=== PATIENT | female | born 1960 | race Caucasian/White ===

== ENCOUNTER 2016-12-10 10:12 | Inpatient (IN) | payer BC, OTHER ==
[2016-12-10] VITALS (33 sets, daily range): BP systolic 81–139; BP diastolic 52–99
[~2016-12-10] VITALS: Ht 162.6 cm; Wt 86.6 kg
--- NOTE | ~2016-12-10 | D ---
[facility] [place] [address] DISCHARGE SUMMARY Name: ANASTACIO BALLARD KALEN Room #: 206-P [facility] IN M.R.#: [id number] Admission: 12/10/16 Attend Phys: Nando Montoya MD, Discharge: 12/13/16 Date of : 56 Report #: [id number] THIS REPORT FOR: //name// CC: Nando Malik MD DATE OF SERVICE: 12/13/2016 DISCHARGE SUMMARY HOSPITAL COURSE: The patient is a 56-year-old female, who was admitted after having an acute anterior wall myocardial infarction while undergoing a nuclear Lexiscan stress test at our [facility]. The Lexiscan was reversed and she was emergently brought to the catheterization lab. This was all within 30 minutes duration. I subsequently found a totally occluded proximal LAD. I was able to successfully dilated and stent that vessel with a drug-eluting stent. There was a 75% to 80% mid RCA lesion that will come back and will intervene on a later date, but this LAD had successful placement of a 2.75 x 14 Resolute stent, postdilated to 3.0 mm in size, yielding 0% residual and LYDIA grade 3 flow. Marked improvement in chest pain and EKG changes. She is up and ambulating, doing well. She is voicing no recurrent complaints. Her creatinine is 1.1 and potassium was 4.4. H and H is and 41.8. She is having a difficult time with smoking cessation, but certainly she is going to try vaping, nonnicotine. She will be discharged on aspirin, Effient 10, Lopressor 20, Toprol external 25, losartan 50, Lipitor 80, and metformin 500 b.i.d. Her hemoglobin A1c was 6.1, but her sugars have been running 130 to 200 and initially over 300 here. She is recommended for a diabetic diet. Dr. Malik, primary will follow up with this. I have initiated 500 metformin b.i.d. She has a followup with me in one month. We will consider intervention into that RCA lesion, it is a dominant vessel. She should resolve of her anterior wall . I expect this to be normal on an abbreviated echo, when she sees me in 1 month. DISCHARGE DIAGNOSES: 1. Acute anterior wall ST elevation myocardial infarction. 2. Hypertension. 3. Hypercholesterolemia. 4. Significant tobacco use. 5. Glucose intolerance and/or new onset diabetes. No lifting for 48 hours. No lying in tub, Jacuzzi or [place] for a week. No MRI or dental work for 3 months. <ELECTRONICALLY SIGNED> By: Nando Montoya MD, FACC 12/14/16 0824 1104 1322 Nando Montoya MD, FACC /nt
--- NOTE | ~2016-12-10 | EKG ---
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 : 1960 Requested By: Nando Montoya Order Number: [id number] MD: Chinmay Farmer Measurements Intervals [place] Rate: 80 P: 5 GA: 185 QRS: -41 QRSD: 102 T: QT: 428 QTc: 494 Interpretive Statements Sinus rhythm Poor R wave progression cannot rule out inferior infarct, age indeterminate Anterior infarct, age indeterminate Compared to ECG 03/30/2010 11:26:11 Lateral T wave abnormality is more pronounced Electronically Signed On 12-13-2016 13:33:30 CDT by Chinmay Farmer [email or web address] <ELECTRONICALLY SIGNED> By: Chinmay Farmer MD, FACC 12/13/16 1333 [id number] Chinmay Farmer MD, [facility] /EPI
--- NOTE | ~2016-12-10 | EKG ---
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 : 1960 Requested By: Nando Montoya Order Number: [id number] MD: Chinmay Farmer Measurements Intervals [place] Rate: 91 P: 26 PA: 174 QRS: -53 QRSD: 96 T: 11 QT: 376 QTc: 463 Interpretive Statements Sinus rhythm Inferior infarct, old Anterior infarct, age indeterminate Compared to ECG 03/30/2010 11:26:11 Myocardial infarct finding now present Electronically Signed On 12-13-2016 13:26:45 CDT by Chinmay Farmer [email or web address] <ELECTRONICALLY SIGNED> By: Chinmay Farmer MD, [facility] 12/13/16 1326 1347 1347 Chinmay Farmer MD, [facility] /EPI
--- NOTE | ~2016-12-10 | EKG ---
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 HERNANDEZ : 1960 Requested By: Nando Montoya Order Number: [id number] MD: Chinmay Farmer Measurements Intervals [place] Rate: 83 P: 13 NC: 169 QRS: -48 QRSD: 96 T: 27 QT: 410 QTc: 482 Interpretive Statements Sinus rhythm Inferior infarct, old Anterior infarct, age indeterminate Compared to ECG 03/30/2010 11:26:11 No significant change was found Electronically Signed On 12-13-2016 13:27:12 CDT by Chinmay Farmer [email or web address] <ELECTRONICALLY SIGNED> By: Chinmay Farmer MD, [facility] 12/13/16 1327 1457 1457 Chinmay Farmer MD, [facility] /EPI
--- NOTE | ~2016-12-10 | H ---
[facility] [place] [address] HISTORY AND PHYSICAL Name: ANASTACIO BALLARD KALEN Room #: 206-P [facility] IN M.R.#: [id number] Admission: 12/10/16 Attend Phys: Nando Montoya MD, Discharge: 12/13/16 Date of : 56 Report #: [id number] THIS REPORT FOR: //name// CC: Nando Stapleton DATE OF SERVICE: 12/10/2016 HISTORY OF PRESENT ILLNESS: The patient is a 56-year-old female who, patient of Dr. Malik, I saw earlier in the week in the office with some accelerating chest pressure, heaviness. She had a normal echocardiographic exam and some mild thyroid abnormalities on a carotid Doppler, subsequently with preserved LV function and as there were some typical and atypical features, so brought in for a nuclear stress test this morning. She received a Lexiscan, started having chest pain and ST elevation. This was quickly reversed at the office by my partner, Dr. Farmer. Heparin was given. The patient tolerated it well, was still having significant pain and had significant discomfort. Paramedics examined, brought emergently to the catheterization lab here at [facility] for intervention. The patient has no prior documented coronary disease. She had marked increasing fatigue and breathlessness here in the last month or so, but definitely accelerated in the last week. She had had a cardiac catheterization 10 years ago and had 20%-30% marginal and mild mid RCA disease at that time. She is being evaluated for diabetes in addition. She has been hypertensive. She was seen recently for back pain in the [facility]. She has been on lisinopril/HCT, blood pressures are continuing to be elevated. Her LDL was 124, total cholesterol 190. She has also been on omeprazole 40. PAST MEDICAL HISTORY: Positive for the hypertension; hypercholesterolemia; reflux; appendectomy; hysterectomy; tonsillectomy for questionable tonsillar cyst; now with abnormal thyroid nodules, we will evaluate later; and COPD with continued tobacco use. SOCIAL HISTORY: She is , pack plus a day smoker. No alcohol. FAMILY HISTORY: Strongly positive for father had premature coronary disease and a pacemaker. ALLERGIES: COMPAZINE, FLEXERIL, MORPHINE AND ADHESIVE TAPE. REVIEW OF SYSTEMS: Negative except for stated above, just markedly progressive fatigue. PHYSICAL EXAMINATION: VITAL SIGNS: Blood pressure was 118/70, pulse was 90. HEENT: Eyes reveal xanthelasmas. Pharynx is clear. [facility] [address] [place] [address] HISTORY AND PHYSICAL Name: ANASTACIO BALLARD KALEN Room #: [facility] IN [facility].#: [id number] Admission: 12/10/16 Attend Phys: Nando Montoya MD, Discharge: 12/13/16 Date of : 56 Report #: [id number] NECK: Shows preserved upstrokes without JVD. LUNGS: Prolonged expiratory phase, but clear. CARDIOVASCULAR: Regular rate and rhythm; S1, S2. ABDOMEN: Soft, no HSM or abdominal bruit. EXTREMITIES: Trace nonpitting edema. NEUROLOGIC: Nonfocal. SKIN: Warm and dry without xanthoma or ulcer. MUSCULOSKELETAL: Mild arthritic changes. ASSESSMENT: 1. Acute anterior wall myocardial infarction, precipitated at Lexiscan nuclear stress test. 2. Hypertension. 3. Hypercholesterolemia. 4. Chronic obstructive pulmonary disease, continued tobacco use. RECOMMENDATIONS AND PLAN: We emergently proceed to the catheterization lab to delineate the anatomy. Risks, benefits, alternatives discussed here and we are proceeding. Her is en route. The anterior injury is noted on the EKG. We will obtain stat labs. <ELECTRONICALLY SIGNED> By: Nando Montoya MD, FACC 12/14/16 0824 1051 1134 Nando Montoya MD, FACC /nt
[~2016-12-10 10:12] MED LIST: CELEXA 10 MG TA10 M1 PO; CIPROFLOXACIN500 M1 PO; FLAGYL500 MG PO; HYDROCODON-ACE1 EACH OR; NEXIUM10 MG PO; PERCOCET 7.5-51 EACH PO; PROPANOLOL OR; ROBAXIN 750 MG750 M1 PO; TOPAMAX25 M1 PO
[2016-12-10 12:43] LABS: CALCIUM 9.3 mg/dL (8.5-10.1); CREATININE 1.1 mg/dL (0.6-1.0); POTASSIUM 3.9 mmol/L (3.5-5.1)
[2016-12-10 12:54] LABS: TROPONIN-I 10.1 ng/mL (<0.04-0.07)
[2016-12-11] VITALS (15 sets, daily range): BP systolic 92–141; BP diastolic 64–84
[2016-12-11 05:01] LABS: HEMATOCRIT 41.8 % (37.0-47.0); HEMOGLOBIN 13.8 gm/dL (12.0-15.0); MCH 28.6 pg (26.0-34.0); MCHC 32.9 g/dL (28.0-37.0); MCV 87.2 fL (80.0-100.0); RBC 4.8 mil/uL (4.20-5.00); RDW 13.7 % (10.5-14.5); WBC 22.3 thou/uL (4.0-11.0)
[2016-12-11 05:15] LABS: ANION GAP 12 mmol/L (7-16); BUN 16 mg/dL (7-18); CALCIUM 9.3 mg/dL (8.5-10.1); CHLORIDE 100 mmol/L (98-107); CHOLESTEROL 139 mg/dL (<200); CO2 23 mmol/L (21-32); CREATININE 1.1 mg/dL (0.6-1.0); GLUCOSE 249 mg/dL (74-106); HDL CHOLESTEROL 29 mg/dL (>40); LDL CHOLESTEROL 93 mg/dL (<100); POTASSIUM 4.4 mmol/L (3.5-5.1); SODIUM 135 mmol/L (136-145); TC:HDL 4.8 Ratio (Not establshd); TRIGLYCERIDE 85 mg/dL (<150); VLDL 17 mg/dL (<40)
[2016-12-11 05:22] LABS: SERUM ASSESSMENT Clear
[2016-12-11 05:23] LABS: TROPONIN-I 26.31 ng/mL (<0.04-0.07)
[2016-12-11] MEDS ORDERED: ZESTRIL10 MG PO (20:51)
[2016-12-11] MEDS ORDERED: OMEPRAZOLE40 MG PO (20:52)
[2016-12-11 22:06] LABS: GLYCOHEMOGLOBIN (HGB A1C) 6.1 % (4.8-5.6)
[2016-12-12 03:56] VITALS: BP 125/96
[2016-12-12 07:35] VITALS: BP 110/66
[2016-12-12] MEDS ORDERED: ASPIRIN EC325 M1 PO (09:43)
[2016-12-12] MEDS ORDERED: COZAAR 50 MG TA50 M2 PO (09:44)
[2016-12-12] MEDS ORDERED: LIPITOR40 MG PO (09:44)
[2016-12-12] MEDS ORDERED: EFFIENT10 MG PO (09:44)
[2016-12-12] MEDS ORDERED: METFORMIN HCL500 MG PO (09:45)
[2016-12-12] MEDS ORDERED: NITROGLYCERIN0.4 MG SUBLING (09:45)
[2016-12-12] MEDS ORDERED: TOPROL XL25 MG PO (09:45)
[2016-12-12 11:30] VITALS: BP 93/60
[2016-12-12 16:20] VITALS: BP 122/82
[2016-12-12 19:33] VITALS: BP 107/74
[2016-12-13 03:50] VITALS: BP 123/78
[2016-12-13 07:34] VITALS: BP 124/78
[2016-12-13 11:29] VITALS: BP 139/89
[2016-12-13 12:43] VITALS: BP 124/78
[2016-12-13 13:06] VITALS: BP 124/78
[2016-12-13 19:46] VITALS: BP 124/78
== END 2016-12-13 13:45 | disposition home or self-care (01) | DRG 247 ==
LOC: CATH 10:12 → ICU 11:27 → 2N 12-11 10:26
PROVIDERS: Internal Medicine Cardiovascular Disease
PROC: 4A023N7 Measurement of Cardiac Sampling and Pressure, Left Heart, Percutaneous Approach (ICD-10-PCS; principal; 2016-12-10)
PROC: B2111ZZ Fluoroscopy of Multiple Coronary Arteries using Low Osmolar Contrast (ICD-10-PCS; principal; 2016-12-10)
PROC: 027034Z Dilation of Coronary Artery, One Artery with Drug-eluting Intraluminal Device, Percutaneous Approach (ICD-10-PCS; principal; 2016-12-10)
DX: I21.09 ST elevation (STEMI) myocardial infarction involving other coronary artery of anterior wall (principal); I10 Essential (primary) hypertension; E78.00 Pure hypercholesterolemia, unspecified; E11.65 Type 2 diabetes mellitus with hyperglycemia; J44.9 Chronic obstructive pulmonary disease, unspecified; F17.210 Nicotine dependence, cigarettes, uncomplicated; K21.9 Gastro-esophageal reflux disease without esophagitis; E78.5 Hyperlipidemia, unspecified; J30.2 Other seasonal allergic rhinitis; Z79.82 Long term (current) use of aspirin; Z90.49 Acquired absence of other specified parts of digestive tract; Z90.710 Acquired absence of both cervix and uterus; Z88.6 Allergy status to analgesic agent; Z88.8 Allergy status to other drugs, medicaments and biological substances; Z79.899 Other long term (current) drug therapy
CPT/HCPCS: 10078; 10081